=== PATIENT | female | born 2000 | race Caucasian/White ===

== ENCOUNTER 2020-03-29 14:40 | Outpatient (CLI) | payer BC ==
--- NOTE | 2020-03-29 17:20 | Ultrasound Report ---
Reason: PELVIC PX Procedure Date: 03/29/2020 Accession Number: [id number] / [id number] Procedure: US - Pelvic w/Transvaginal CPT Code: Final Report FULL RESULT: PROCEDURE: Pelvic w/Transvaginal INDICATIONS: PELVIC PX TECHNIQUE: Real-time scanning was performed of the pelvic organs, with image documentation. Additional endovaginal scanning was necessary due to incomplete visualization of the adnexal and endometrial structures by transabdominal scanning. COMPARISON: None. FINDINGS: Transabdominal scanning: Limited scanning through the kidneys shows no hydronephrosis. No pathologic free abdominal or pelvic fluid. Endovaginal scanning: Uterus: Uterus is normal in size at 8.2 x 2.6 x 3.1 cm. The endometrium measures 7 mm in combined thickness. Nabothian cysts are noted. Intrauterine device is present. It appears to be within the lower uterine segment. Unicornuate uterus is noted. Ovaries: Right ovaries not visualized. Left ovary measures 27 x 20 x 29 mm. Prominent follicle is present measuring 20 x 15 x 19 mm. IMPRESSION: 1. Unicornuate uterus with intrauterine device in the lower uterine segment. Reviewed by: Margie Carvajal MD on 03/29/2020 5:19 PM PDT Approved by: Margie Carvajal MD on 03/29/2020 5:19 PM PDT Station ID: [id number]
== END 2020-03-29 14:41 | disposition home or self-care (01) ==
LOC: DI 14:40
PROVIDERS: ATTEND Obstetrics & Gynecology
DX: R10.2 Pelvic and perineal pain (principal); Q51.4 Unicornate uterus; Z97.5 Presence of (intrauterine) contraceptive device
CPT/HCPCS: 76830; 76856

== ENCOUNTER 2022-11-03 15:41 | Outpatient (CLI) | payer BC ==
[2022-11-03 16:02] LABS: BASOPHILS % (AUTO) 0.8 %; EOSINOPHILS # (AUTO) 0.1 10^3/uL (0.0-0.7); EOSINOPHILS % (AUTO) 2.1 %; HCT - HEMATOCRIT 40.7 % (37.0-47.0); HGB - HEMOGLOBIN 13.3 g/dL (12.0-16.0); LYMPHOCYTES # (AUTO) 1.9 10^3/uL (1.5-3.5); LYMPHOCYTES % (AUTO) 38.8 %; MEAN CORPUSCULAR HEMOGLOBIN 29.5 pg (27.0-31.0); MEAN CORPUSCULAR HGB CONC 32.7 g/dL (32.0-36.0); MEAN CORPUSCULAR VOLUME 90.2 fL (81.0-99.0); MEAN PLATELET VOLUME 10.1 fL (7.9-10.8); MONOCYTES # (AUTO) 0.4 10^3/uL (0.0-1.0); MONOCYTES % (AUTO) 7.6 %; NEUTROPHILS # (AUTO) 2.5 10^3/uL (1.5-6.6); NEUTROPHILS % (AUTO) 50.5 %; PLT - PLATELET COUNT 318 10^3/uL (130-450); RED BLOOD COUNT 4.51 10^6/uL (4.20-5.40); RED CELL DISTRIBUTION WIDTH 11.8 % (12.0-15.0); WHITE BLOOD COUNT 4.9 x10^3/uL (4.8-10.8)
[2022-11-03 16:22] LABS: % IRON SATURATION 34 % (20-50); ALBUMIN 4.6 g/dL (3.2-5.5); ALBUMIN/GLOBULIN RATIO 1.4 (1.0-2.2); ALKALINE PHOSPHATASE 59 IU/L (42-121); ALT ALANINE AMINOTRANSFERASE 16 IU/L (10-60); AST ASPARTATE AMINOTRANSFERASE 16 IU/L (10-42); BILIRUBIN,TOTAL 0.6 mg/dL (0.2-1.0); BUN - BLOOD UREA NITROGEN 14 mg/dL (6-20); CALCIUM 9.6 mg/dL (8.5-10.3); CARBON DIOXIDE - CO2 27 mmol/L (21-32); CHLORIDE 101 mmol/L (101-111); CREATININE 0.5 mg/dL (0.4-1.0); GFR - MDRD 152 (>89); GLUCOSE 92 mg/dL (70-100); IRON 118 ug/dL (28-170); POTASSIUM 4.1 mmol/L (3.5-5.0); SODIUM 134 mmol/L (135-145); TOTAL IRON BINDING CAPACITY 350 ug/dL (250-450); TOTAL PROTEIN 7.8 g/dL (6.7-8.2); TRANSFERRIN 250 mg/dL (192-382)
[2022-11-03 16:24] LABS: CRP HIGH SENSITIVITY < 0.5 mg/L
[2022-11-03 16:35] LABS: THYROID STIMULATING HORMONE 2.36 uIU/mL (0.34-5.60)
[2022-11-03 16:36] LABS: FREE T3 3.23 pg/mL (2.5-3.9)
[2022-11-03 16:37] LABS: FREE T4 (FREE THYROXINE) 0.87 ng/dL (0.58-1.64)
[2022-11-03 16:41] LABS: FERRITIN 32.6 ng/mL (11.0-306.8)
[2022-11-04 06:09] LABS: VITAMIN D 25-HYDROXY 78.8 ng/mL (30.0-100.0)
== END 2022-11-03 15:42 | disposition home or self-care (01) ==
LOC: LAB 15:41
PROVIDERS: ATTEND Family Medicine
DX: E03.9 Hypothyroidism, unspecified (principal); R53.83 Other fatigue; D64.9 Anemia, unspecified; E55.9 Vitamin D deficiency, unspecified; M45.6 Ankylosing spondylitis lumbar region
CPT/HCPCS: 36415; 80053; 82306; 82626; 82728; 83090; 83540; 84439; 84443; 84466; 84480; 84481; 84482; 85025; 86141